=== PATIENT | female | born 1965 | race Caucasian/White ===

== ENCOUNTER → 2024-11-20 | Outpatient (CLI) | payer MEDICAID, SELFPAY ==
--- NOTE | 2024-11-20 12:40 | XR_ITS ---
Examination: Bone densitometry Date and time of exam:November 20, 2024 1246 hours INDICATIONS: Menopause age 54 Technique: Lumbar spine and hip total bone mineralization values of an calculated. Peak reference and age match control results have been displayed. Findings: Lumbar spine total bone mineralization is0.738 gm/cm2. This is 2.8 standard deviations below peak reference. This is 1.3 standard deviations below age-matched controls. Hip total bone mineralization is 0.762 gm/cm2 This is 1.5 standard deviations below peak reference. This is 0.5 standard deviations below age-matched controls Impression: There is osteoporosis based on lumbar spine measurements. There is osteopenia based on hip measurements
== END | disposition home or self-care (01) ==
PROVIDERS: PCP Registered Nurse Pediatrics; Referring Provider Registered Nurse Pediatrics; Visit Provider Registered Nurse Pediatrics
DX: Z00.00 Encounter for general adult medical examination without abnormal findings (principal); M81.0 Age-related osteoporosis without current pathological fracture; M85.88 Other specified disorders of bone density and structure, other site
CPT/HCPCS: 77080